=== PATIENT | male | born 1960 | race Hispanic/Latino ===

== ENCOUNTER 2018-08-10 20:14 | Emergency (ER) | payer OTHER ==
[2018-08-10 20:46] VITALS: O2SAT 99
[2018-08-10] MEDS ORDERED: Sodium Chloride 0.9% 1,000 ML IV STA (21:37)
--- NOTE | 2018-08-10 21:54 | ED PDOC ---
Syncope/Near Syncope/Dizziness Time Seen by Provider: 08/10/18 21:06 Chief Complaint (Nursing): Dizziness/Lightheaded Chief Complaint (Provider): Dizziness/Lightheaded History Per: Patient History/Exam Limitations: no limitations Onset/Duration Of Symptoms: Hrs Current Symptoms Are (Timing): Still Present Additional Complaint(s): Patient is a 58 y/o male with a PMHx of gastritis, seasonal allergies, and pre- diabetes who presents to the ED for evaluation of dizziness, onset this morning. Patient reports waking up with severe vertiginous. Patient states when he opens his eyes everything is spinning, which worsens when sitting up or moving, prompting the feeling of nausea. The patient admits to a loss in appetite due to the nausea, mild headache, and fullness in right ear. Patient denies vomiting, coldness, cough, and congestion. Of note, patient was on a recent plane flight and came back on 08/05/2018. PCP: Dr. Sd Lee Past Medical History Reviewed: Historical Data, Nursing Documentation, Vital Signs Vital Signs: Last Vital Signs Temp 98.2 F 08/10/18 20:42 Pulse 68 08/10/18 20:42 Resp 18 08/10/18 20:42 BP 131/79 08/10/18 20:42 Pulse Ox 99 08/10/18 20:42 - Medical History PMH: Diabetes (Last bloodwork shows pre-diabetes), Gastritis Other PMH: seasonal allergies - Surgical History Surgical History: No Surg Hx - Family History Family History: States: Unknown Family Hx - Social History Current smoker - smoking cessation education provided: No Alcohol: > 2 Drinks/Day Drugs: Denies - Home Medications Home Medications: Ambulatory Orders Medication Instructions Recorded Ondansetron ODT [Zofran ODT] 1 odt PO Q6 PRN #20 odt 08/10/18 RX: Meclizine HCl 50 mg PO BID PRN #30 tablet 08/10/18 - Allergies Allergies/Adverse Reactions: Allergies Allergy/AdvReac Type Severity Reaction Status Date / Time No Known Allergies Allergy Verified 08/10/18 20:42 Review of Systems ROS Statement: Except As Marked, All Systems Reviewed And Found Negative Eyes: Positive for: Vision Change (Spinning) ENT: Positive for: Other (Fullness in right ear). Negative for: Nose Congestion Respiratory: Negative for: Cough Gastrointestinal: Negative for: Vomiting Neurological: Positive for: Headache (mild), Dizziness Physical Exam - Reviewed Nursing Documentation Reviewed: Yes Vital Signs Reviewed: Yes - Physical Exam Appears: Positive for: In Acute Distress (Neurological; Tired) Head Exam: Positive for: ATRAUMATIC, NORMAL INSPECTION, NORMOCEPHALIC Skin: Positive for: Pallor Eye Exam: Positive for: EOMI, PERRL, Nystagmus (Bilateral Gaze but Worse Towards Left; Right Eye Preference) ENT: Positive for: Other (dry mucus membranes). Negative for: Pharyngeal Erythema, Tonsillar Exudate Neck: Positive for: Painless ROM, Supple Cardiovascular/Chest: Positive for: Regular Rate, Rhythm. Negative for: Murmur Respiratory: Positive for: Normal Breath Sounds. Negative for: Respiratory Distress Gastrointestinal/Abdominal: Positive for: Soft. Negative for: Tenderness Back: Positive for: Normal Inspection. Negative for: Muscle Spasm Extremity: Positive for: Normal ROM. Negative for: Deformity Lymphatic: Negative for: Adenopathy Neurologic/Psych: Positive for: Alert, athletics teacher II-XII (intact), Oriented (x3). Ne gative for: Motor/Sensory Deficits - Laboratory Results Result Diagrams: 08/10/18 21:50 08/10/18 21:50 - ECG O2 Sat by Pulse Oximetry: 99 (RA) Pulse Ox Interpretation: Normal Medical Decision Making Medical Decision Making: Time: 2136 Impression: Vertigo DDx includes but not limited to BPPV, labyrinthitis, intra-cranial mass, electrolyte abnormality, and dehydration. Plan: CT Head w/o Contrast EKG CMP Magnesium Phosphorus Urine Dipstick CBC PTT Prothrombin Time Glucose, POC Antivert 50 mg PO IV Fluids Zofran Inj 4 mg IVP IN Insertion ([place]) Glucose, Blood, POC Labs unremarkable EXAM: CT Head without Intravenous Contrast. CLINICAL HISTORY: Vertigo, headaches TECHNIQUE: Axial computed tomography images of the head/brain without intravenous contrast. 955.61 mGy-cm COMPARISON: None provided. FINDINGS: BRAIN No acute intraparenchymal hemorrhage. No mass lesion. No CT evidence for acute territorial infarct. No midline shift or extra-axial collections. VENTRICLES: No hydrocephalus. ORBITS: The orbits are unremarkable. SINUSES AND MASTOIDS: The paranasal sinuses and mastoid air cells are clear. BONES: No fracture. SOFT TISSUES: Unremarkable. IMPRESSION: No acute intracranial abnormality. Electronically signed on Aug 10, 2018 10:33:12 PM EST by: Loco Lagunas M.D., MBA Certified By [employer] & [employer] Fellowship Trained MRI and CT Specialist Scribe Attestation: Documented by Kian Corbett, acting as a scribe for Fay Hicks MD. Provider Scribe Attestation: All medical record entries made by the Scribe were at my direction and personally dictated by me. I have reviewed the chart and agree that the record accurately reflects my personal performance of the history, physical exam, medical decision making, and the department course for this patient. I have also personally directed, reviewed, and agree with the discharge instructions and disposition. Disposition - Clinical Impression Clinical Impression: Vertigo - Disposition Referrals: Martin Kelly MD [Staff Provider] - 08/11/18 (PLEASE FOLLOW UP WITH YOUR ENT OR DR KELLY THIS WEEK FOR FURTHER EVALUATION) Disposition: Routine/Home Disposition Time: 00:30 Condition: IMPROVED Prescriptions: RX: Meclizine HCl 50 mg PO BID PRN #30 tablet PRN Reason: Dizziness Ondansetron ODT [Zofran ODT] 1 odt PO Q6 PRN #20 odt PRN Reason: Nausea/Vomiting Instructions: Vertigo (a Type of Dizziness) (DC)
[2018-08-10 21:57] LABS: BASO % 0.7 % (0.0-2.0); EOS # 0.1 K/uL (0.0-0.7); EOS % 1.5 % (0.0-4.0); HEMOGLOBIN 14.5 g/dL (12.0-18.0); LYMPH # 0.8 K/uL (1.0-4.3); LYMPH % 17.9 % (20.0-40.0); MEAN CELL VOLUME 87.6 fl (80.0-94.0); MEAN CORPUSCULAR HEMOGLOBIN 29.9 pg (27.0-31.0); MEAN CORPUSCULAR HGB CONC 34.1 g/dL (33.0-37.0); MEAN PLATELET VOLUME 12.1 fl (7.2-11.7); MONO # 0.3 K/uL (0.0-0.8); MONO % 7.2 % (0.0-10.0); NEUT # 3.4 K/uL (1.8-7.0); NEUT % 72.7 % (50.0-75.0); NRBC % 0.1 % (0.0-0.0); RBC 4.86 Mil/uL (4.40-5.90); RED CELL DISTRIBUTION WIDTH 13.8 % (11.5-14.5); WHITE BLOOD COUNT 4.7 K/uL (4.8-10.8)
[2018-08-10 22:07] LABS: INR 1.1; PROTHROMBIN TIME 12.1 Seconds (9.8-13.1)
[2018-08-10 22:10] LABS: ALB/GLOB RATIO 1.4 (1.0-2.1); ALBUMIN 4.1 g/dL (3.5-5.0); ALT/SGPT 42 U/L (21-72); AST/SGOT 24 U/L (17-59); BLOOD UREA NITROGEN 30 mg/dl (9-20); CALCIUM 9.2 mg/dL (8.4-10.2); GFR NON-AFRICAN AMERICAN > 60; PARTIAL THROMBOPLASTIN TIME 30.1 Seconds (25.6-37.1)
[2018-08-11 01:50] VITALS: BP 102/76; PULSE 51; RESP 18; TEMP 97.7
--- NOTE | 2018-08-11 10:38 | CT ---
Date of service: 08/10/2018 PROCEDURE: CT HEAD WITHOUT CONTRAST. HISTORY: vertigo headache COMPARISON: None available. TECHNIQUE: Axial computed tomography images were obtained through the head/brain without intravenous contrast. Radiation dose: Total exam DLP = 955.61 mGy-cm. This CT exam was performed using one or more of the following dose reduction techniques: Automated exposure control, adjustment of the mA and/or kV according to patient size, and/or use of iterative reconstruction technique. FINDINGS: HEMORRHAGE: No acute parenchymal, subarachnoid or extra-axial hemorrhage. BRAIN: No mass effect or edema. No atrophy or significant chronic microvascular ischemic changes. Mild localized bilateral superior frontal cortical volume loss with overlying sulcal enlargement. VENTRICLES: No obstructive hydrocephalus. CALVARIUM: Calvarium intact. PARANASAL SINUSES: Unremarkable as visualized. No significant inflammatory changes. MASTOID AIR CELLS: Unremarkable as visualized. No inflammatory changes. OTHER FINDINGS: None. IMPRESSION: No acute intracranial hemorrhage. Mild localized bifrontal superior cortical of volume loss with overlying sulcal enlargement.
--- NOTE | 2018-08-11 19:58 | CARD ---
APPROVED REPORT Date of service: 08/10/2018 EKG Measurement Heart [id number] <Conclusion> Sinus bradycardia Possible Left atrial enlargement Borderline ECG
== END 2018-08-11 01:35 | disposition home or self-care (01) ==
LOC: H.ER 20:14
DX: R42 Dizziness and giddiness (principal); E11.9 Type 2 diabetes mellitus without complications; Z79.899 Other long term (current) drug therapy
CPT/HCPCS: 70450; 80053; 82948; 83735; 84100; 85025; 85610; 85730; 93005; 96361; 96374; 99285; J2405; J7030